=== PATIENT | male | born 2000 | race Caucasian/White ===

== ENCOUNTER 2019-10-04 20:20 | Emergency (ER) | payer OTHER ==
[2019-10-04 21:04] LABS: BILIRUBIN,URINE NEGATIVE (NEGATIVE); CLARITY,URINE CLEAR; COLOR,URINE YELLOW; GLUCOSE, URINE (UA) NEGATIVE (NEGATIVE); KETONES,URINE NEGATIVE (NEGATIVE); LEUKOCYTE ESTERASE ,URINE NEGATIVE (NEGATIVE); NITRITE,URINE NEGATIVE (NEGATIVE); PROTEIN,URINE NEGATIVE (NEGATIVE)
[2019-10-04] MEDS ORDERED: TETANUS,DIPTH,PERTUSS P/F (BOOSTRIX) 0.5 ML VIAL IM ONE (21:15)
--- NOTE | 2019-10-04 21:17 | ED Fall/Injury ---
General Chief Complaint: Trauma-Non Activation Stated Complaint: FELL OFF ROOF GROIN PAIN Nursing Triage Note: Superficial abrasions noted to L medial leg et thigh. Source: patient Exam Limitations: no limitations History of Present Illness Date Seen by Provider: Oct 04, 2019 Time Seen by Provider: 20:35 Initial Comments This 19-year-old young man presents to the emergency room with injuries to the left lower extremity and groin after falling off a 15 foot roof last night. He was intoxicated during the incident. He landed on a wooden privacy fence causing injury to the leg. He is ambulatory. He has no obvious injury to the penis or scrotum. He presents to the emergency room tonight at the urging of his parents. He does not know when his last tetanus shot was administered. He has abrasions and bruising to the anterior and medial portions of the lower leg and thigh extending up to the groin. Location Injury Occurred: "House libertarian" Allergies and Home Medications Allergies Coded Allergies: No Known Drug Allergies (Unverified , 10/04/19) Patient Home Medication List Home Medication List Reviewed: Yes Review of Systems Review of Systems Constitutional: no symptoms reported Eyes: No Symptoms Reported Ears, Nose, Mouth, Throat: no symptoms reported Respiratory: no symptoms reported Cardiovascular: no symptoms reported Gastrointestinal: no symptoms reported Genitourinary: no symptoms reported Musculoskeletal: see HPI Skin: see HPI Psychiatric/Neurological: No Symptoms Reported Past Xejcecz-Ipkbnn-Ucxkuf Hx Past Med/Social Hx: Reviewed Nursing Past Med/Soc Hx Patient Social History Alcohol Use: Rarely Uses Number of Drinks Today: 0 Alcohol Beverage of Choice: Beer Recreational Drug Use: No Smoking Status: Never a Smoker 2nd Hand Smoke Exposure: No Recent Foreign Travel: No Contact w/Someone Who Travel: No Recent Infectious Disease Expo: No Recent Hopitalizations: No Seasonal Allergies Seasonal Allergies: No Past Medical History Surgeries: Yes Orthopedic Respiratory: No Cardiac: No Neurological: No Genitourinary: No Gastrointestinal: No Musculoskeletal: No Endocrine: No HEENT: No Cancer: No Psychosocial: No Integumentary: No Physical Exam Vital Signs Vital Signs - First Documented 10/04/19 20:25 Temp 36.8 Pulse 94 Resp 18 B/P (MAP) 155/96 (115) Pulse Ox 98 O2 Delivery Room Air O2 Flow Rate 98.00 Capillary Refill : Less Than 3 Seconds Height, Weight, BMI Height: '" Weight: lbs. oz. kg; BMI Method: General Appearance: WD/WN, no apparent distress HEENT: normal ENT inspection Neck: normal inspection Cardiovascular: regular rate, rhythm, no edema, no murmur Respiratory: lungs clear, normal breath sounds, no respiratory distress Gastrointestinal: normal bowel sounds, non tender, soft Pelvic: other (male genital exam shows no erythema, abrasions, or ecchymosis to the penis or scrotum. No tenderness in the testicles.) Extremities: no pedal edema, other (soft tissue tenderness with associated abrasions and ecchymosis on the anterior and medial lower leg, knee, and thigh extending up to the groin. No pain with range of motion in the ankle, knee, or hip. The soft tissues are tender.) Neurologic/Psychiatric: supervisor electronic testing II-XII nml as tested, no motor/sensory deficits, alert, normal mood/affect, oriented x 3 Skin: normal color, warm/dry, ecchymosis, other (patient's) [place] Coma Score Best Eye Response: (4) Open Spontaneously Best Verbal Response: (5) Oriented Best Motor Response: (6) Obeys Commands [place] Total: 15 Progress/Results/Core Measures Results/Orders Lab Results Laboratory Tests Test 10/04/19 21:00 Range/Units Urine Color YELLOW Urine Clarity CLEAR Urine pH 6.0 5-9 Urine Specific [place] >=1.030 1.016-1.022 Urine Protein NEGATIVE NEGATIVE Urine Glucose (UA) NEGATIVE NEGATIVE Urine Ketones NEGATIVE NEGATIVE Urine Nitrite NEGATIVE NEGATIVE Urine Bilirubin NEGATIVE NEGATIVE Urine Urobilinogen 0.2 < = 1.0 MG/DL Urine Leukocyte Esterase NEGATIVE NEGATIVE Urine RBC (Auto) NEGATIVE NEGATIVE Urine RBC NONE /HPF Urine WBC 2-5 /HPF Urine Crystals PRESENT H /LPF Urine Amorphous Sediment MOD SHIV URATES H /LPF Urine Bacteria TRACE /HPF Urine Casts NONE /LPF Urine Mucus LARGE H /LPF Urine Culture Indicated NO My Orders Orders - ZACH ROSENBAUM MD Pelvis With Left Hip 2-3 Views (10/04/19 20:42) Ua Culture If Indicated (10/04/19 20:47) Dipht,Pertuss(Acell),Tet Adult (Boostrix (10/04/19 21:15) Medications Given in ED Current Medications Medications Dose Ordered Sig/Jackie Route Start Time Stop Time Status Last Admin Dose Admin Diphtheria/ Tetanus/Acell Pertussis 0.5 ml ONCE ONCE IM 10/04/19 21:15 10/04/19 21:16 DC 10/04/19 21:09 0.5 ML Vital Signs/I&O 10/04/19 10/04/19 20:25 22:02 Temp 36.8 36.8 Pulse 94 92 Resp 18 17 B/P (MAP) 155/96 (115) 142/80 (115) Pulse Ox 98 99 O2 Delivery Room Air Room Air O2 Flow Rate 98.00 98.00 Blood Pressure Mean: 115 Progress Progress Note : Progress Note Tetanus booster was administered. Pelvis x-ray revealed an incidental finding of possible enchondroma of the right femur. Patient was advised to follow-up with his primary care provider regarding this finding. Urinalysis was unremarkable. Diagnostic Imaging Diagonstic Imaging: Xray Plain Films/CT/US/NM/MRI: pelvis, hip Comments X-ray of the pelvis and hip viewed by me and report reviewed. See report below: NAME: ARPAN LUBIN [facility] REC#: [id number] PT STATUS: REG ER : 2000 PHYSICIAN: ZACH ROSENBAUM MD ADMIT DATE: 10/04/19/ER Draft Date of Exam:10/04/19 PELVIS WITH LEFT HIP 2-3 VIEWS INDICATION: Fell off a roof last night, complaining of pain in the left groin area. FINDINGS: An AP view of the pelvis and two views of the left hip demonstrates no fracture, dislocation or diastases. In the right femur just below the intertrochanteric line there is a chondroid lesion most likely an enchondroma. MRI could be helpful for further evaluation of this. IMPRESSION: 1. There is a chondroid lesion in the right femur most likely an enchondroma. Elective MRI could be helpful for further evaluation of this. 2. There are no acute findings. Dictated on workstation # [id number] Dict: 10/04/192052 Trans: 10/04/19 2119 [facility] [id number] Interpreted by: PATRICIA MONACO MD Departure Impression Primary Impression: Fall from roof as cause of accidental injury Additional Impressions: Contusion of left leg Qualified Codes: S80.12XA - Contusion of left lower leg, initial encounter Abrasion, left lower leg, initial encounter Abnormal x-ray of femur Disposition: HOME, SELF-CARE Condition: Improved Departure-Patient Inst. Decision time for Depature: 21:34 Referrals: NO,LOCAL PHYSICIAN (Family) Primary Care Physician Patient Instructions: Contusion (DC) Add. Discharge Instructions: The x-ray of your hip and pelvis showed no injuries related to your fall. However, there is an incidental abnormal finding to your right femur (thigh) bone. It was suggestive of a benign tumor called an enchondroma. Please follow-up with your primary care provider and discuss this further. Monitor your wounds for signs of infection such as increasing redness, increasing swelling, puslike drainage, or fever. Return to care promptly if you notice these symptoms. You may use Tylenol and/or ibuprofen for treatment of pain. Return to care if you have any further problems or concerns. All discharge instructions reviewed with patient and/or family. Voiced understanding. ZACH ROSENBAUM MD Oct 04, 2019 21:17
--- NOTE | 2019-10-04 21:20 | Diagnostic Imaging Report ---
INDICATION: Fell off a roof last night, complaining of pain in the left groin area. FINDINGS: An AP view of the pelvis and two views of the left hip demonstrates no fracture, dislocation or diastases. In the right femur just below the intertrochanteric line there is a chondroid lesion most likely an enchondroma. MRI could be helpful for further evaluation of this. IMPRESSION: 1. There is a chondroid lesion in the right femur most likely an enchondroma. Elective MRI could be helpful for further evaluation of this. 2. There are no acute findings. Dictated by: Dictated on workstation # [id number]
[2019-10-04 21:46] LABS: AMORPHOUS SEDIMENT,UR MOD AMOR URATES /LPF; BACTERIA,URINE TRACE /HPF
[2019-10-04 22:02] VITALS: BP 142/80
--- OUTSIDE RECORDS SUMMARY | 2019-10-07 10:35 | XMS REPORT | Continuity of Care Document ---
Author Organization Unknown Address Unknown Phone Unavailable Allergies Active Description Code Type Severity Reaction Onset Reported/Identified Relationship to Patient Clinical Status Yes No Known Drug Allergies [id number] Drug Allergy Unknown N/A 10/04/2019 Medications There is no data. Problems There is no data. Procedures There is no data. Results Test Result Range Complete urinalysis with reflex to cultu re - 10/04/19 21:00 Urine color determination YELLOW NRG Urine clarity determination CLEAR NR G Urine pH measurement by test strip 6.0 5-9 Specific gravity of urine by test strip >= 1.016-1.022 Urine protein assay by test strip, semi-quantitative NEGATIVE NEGATIVE Urine glucose detection by automated test strip NE GATIVE NEGATIVE Erythrocytes detection in urine sediment by light micr oscopy NEGATIVE NEGATIVE Urine ketones detection by automated test strip NE GATIVE NEGATIVE Urine nitrite detection by test strip NEGATIVE NEGATIVE Urine total bilirubin detection by test strip NEGA TIVE NEGATIVE Urine urobilinogen measurement by automated test strip (mass/volume) 0.2 mg/dL < = 1.0 Urine leukocyte esterase detection by dipstick NEG ATIVE NEGATIVE Automated urine sediment erythrocyte cou nt by microscopy (number/high power field) NONE NRG Automated urine sediment leukocyte count by microscopy (number/high power field) [HPF] NRG Bacteria detection in urine sediment by light microsco py TRACE NRG Crystals detection in urine sediment by light microsco py PRESENT NRG Casts detection in urine sediment by light microscopy NONE NRG Mucus detection in urine sediment by light microscopy LARGE NRG Complete urinalysis with reflex to culture NO NRG Amorphous sediment detection in urine sediment by ligh t microscopy MOD SHIV URATES NRG Encounters ACCT No. Visit Date/Time Discharge Status Pt. Type Provider Facility Loc./Unit Complaint [id number] 10/04/2019 20:22:00 020 22:02:00 DIS Emergency ROBI CHAVEZ, ZACH Sanab[facility] ER FELL OFF ROOF G ROIN PAIN
== END 2019-10-04 22:02 | disposition home or self-care (01) ==
LOC: ER 20:22
DX: S80.12XA Contusion of left lower leg, initial encounter (principal); R93.6 Abnormal findings on diagnostic imaging of limbs; R40.2142 Coma scale, eyes open, spontaneous, at arrival to emergency department; R40.2252 Coma scale, best verbal response, oriented, at arrival to emergency department; R40.2362 Coma scale, best motor response, obeys commands, at arrival to emergency department; Z23 Encounter for immunization; W13.2XXA Fall from, out of or through roof, initial encounter
CPT/HCPCS: 81000; 90715

== ENCOUNTER 2020-11-08 08:59 | Emergency (ER) | payer OTHER ==
[~2020-11-08] VITALS: Ht 185 cm; Wt 136.0 kg
[2020-11-08] MEDS ORDERED: ACETAMINOPHEN 500 MG TAB (TYLENOL) PO ONE (09:15)
[2020-11-08 09:27] LABS: CLARITY,URINE CLEAR; COLOR,URINE YELLOW; GLUCOSE, URINE (UA) NEGATIVE (NEGATIVE); KETONES,URINE NEGATIVE (NEGATIVE); LEUKOCYTE ESTERASE ,URINE NEGATIVE (NEGATIVE); NITRITE,URINE NEGATIVE (NEGATIVE); PH,URINE 5.5 (5-9); PROTEIN,URINE 1+ (NEGATIVE)
--- NOTE | 2020-11-08 09:54 | ED GU-Male ---
General Chief Complaint: - Urinary Stated Complaint: R TESTICLE PAIN Nursing Triage Note: PT STATES HE WOKE UP WITH PAIN IN RT TESTICLE THIS A.M. NO KNOWN CAUSE. Source: patient Exam Limitations: no limitations History of Present Illness Date Seen by Provider: Nov 08, 2020 Time Seen by Provider: 09:05 Initial Comments This 20-year-old young man presents to the emergency room with complaints of right testicular pain. He noticed a slight discomfort when he woke up this morning and the pain progressed after he went to a lecture class. He reports the pain is now 9 out of 10. He took 800 mg of ibuprofen before coming to the emergency room. He denies any dysuria, penile drainage, hematuria, or frequency. He reports a slight amount of discomfort in the right lower quadrant as well. There is no obvious swelling or inflammation of the testicle or scrotum. He has not experienced this problem before. Allergies and Home Medications Allergies Coded Allergies: No Known Drug Allergies (Unverified , 10/04/19) Home Medications Doxycycline Hyclate 100 Mg Tablet, 100 MG PO BID Prescribed by: ZACH GUEVARA on 11/08/20 1102 Hydrocodone/Acetaminophen 1 Each Tablet, 1 TAB PO Q4H PRN for PAIN-MODERATE (5- 7) Prescribed by: ZACH GUEVARA on 11/08/20 1103 Ondansetron 4 Mg Tab.rapdis, 4 MG SL Q4H PRN for NAUSEA/VOMITING Prescribed by: ZACH GUEVARA on 11/08/20 1102 Patient Home Medication List Home Medication List Reviewed: Yes Review of Systems Review of Systems Constitutional: no symptoms reported EENTM: no symptoms reported Respiratory: no symptoms reported Cardiovascular: no symptoms reported Gastrointestinal: see HPI Genitourinary: see HPI Musculoskeletal: no symptoms reported Skin: no symptoms reported Psychiatric/Neurological: No Symptoms Reported Endocrine: No Symptoms Reported Hematologic/Lymphatic: No Symptoms Reported Past Siohnrc-Ndcmdl-Jsqiqq Hx Past Med/Social Hx: Reviewed Nursing Past Med/Soc Hx Patient Social History Alcohol Use: Occasionally Uses Number of Drinks Today: AA Alcohol Beverage of Choice: Beer Smoking Status: Former Smoker Type Used: Electronic/Vapor 2nd Hand Smoke Exposure: No Recent Infectious Disease Expo: No Recent Hopitalizations: No Seasonal Allergies Seasonal Allergies: No Past Medical History Surgeries: Yes (RT FOOT, ELBOW, AND WRIST) Orthopedic Respiratory: No Cardiac: No Neurological: No Genitourinary: No Gastrointestinal: No Musculoskeletal: No Endocrine: No HEENT: No Cancer: No Psychosocial: No Integumentary: No Physical Exam Vital Signs Vital Signs - First Documented 11/08/20 09:05 Temp 36.7 Pulse 66 Resp 18 B/P (MAP) 146/92 (110) Pulse Ox 98 O2 Delivery Room Air Capillary Refill : Less Than 3 Seconds Height, Weight, BMI Height: '" Weight: lbs. oz. kg; 39.00 BMI Method: General Appearance: WD/WN, no apparent distress HEENT: PERRL/EOMI, normal ENT inspection Neck: normal inspection Cardiovascular: regular rate, rhythm, no edema, no murmur Respiratory: lungs clear, normal breath sounds, no respiratory distress Gastrointestinal: normal bowel sounds, soft; No distended; tenderness (Right lower quadrant) Extremities: normal inspection, no pedal edema Neurologic/Psychiatric: cpa tax II-XII nml as tested, no motor/sensory deficits, alert, normal mood/affect, oriented x 3 Skin: normal color, warm/dry Progress/Results/Core Measures Suspected Sepsis Recent Fever Within 48 Hours: No Infection Criteria Present: None New/Unexplained Altered Menta: No Sepsis Screen: No Definite Risk SIRS Temperature: Pulse: 66 Respiratory Rate: 18 Blood Pressure 146 /92 Mean: 110 Results/Orders Lab Results Laboratory Tests Test 11/08/20 09:20 Range/Units Urine Color YELLOW Urine Clarity CLEAR Urine pH 5.5 5-9 Urine Specific [place] >=1.030 1.016-1.022 Urine Protein 1+ H NEGATIVE Urine Glucose (UA) NEGATIVE NEGATIVE Urine Ketones NEGATIVE NEGATIVE Urine Nitrite NEGATIVE NEGATIVE Urine Bilirubin 1+ H NEGATIVE Urine Urobilinogen 1.0 < = 1.0 MG/DL Urine Leukocyte Esterase NEGATIVE NEGATIVE Urine RBC (Auto) 3+ H NEGATIVE Urine RBC >100 H /HPF Urine WBC 0-2 /HPF Urine Squamous Epithelial Cells 0-2 /HPF Urine Crystals PRESENT H /LPF Urine Amorphous Sediment FEW SHIV URATES H /LPF Urine Bacteria TRACE /HPF Urine Casts NONE /LPF Urine Mucus MODERATE H /LPF Urine Culture Indicated NO My Orders Orders - ZACH ROSENBAUM MD Ua Culture If Indicated (11/08/20 09:04) Acetaminophen Tablet (Tylenol Tablet) (11/08/20 09:15) Us Scrotum (Testicle) [id number] (11/08/20 09:13) Abdomen/Kub 1view (11/08/20 10:22) Ceftriaxone For Im Use (Rocephin For Im (11/08/20 11:00) Lidocaine 1% Inj 20 Ml (Xylocaine 1% Inj (11/08/20 11:00) Chlamydia Trachomatis Urine (11/08/20 10:51) Neis Nick Dna Urine Test (11/08/20 10:51) Urine Culture (11/08/20 10:51) Medications Given in ED Current Medications Medications Dose Ordered Sig/Jackie Route Start Time Stop Time Status Last Admin Dose Admin Acetaminophen 1,000 mg ONCE ONCE PO 11/08/20 09:15 11/08/20 09:16 DC 11/08/20 09:23 1,000 MG Ceftriaxone Sodium 1,000 mg ONCE ONCE IM 11/08/20 11:00 11/08/20 11:01 DC 11/08/20 11:00 1,000 MG Lidocaine HCl 2.1 ml ONCE ONCE INJ 11/08/20 11:00 11/08/20 11:01 DC 11/08/20 11:00 2.1 ML Vital Signs/I&O 11/08/20 11/08/20 11/08/20 09:05 09:23 11:19 Temp 36.7 36.7 36.7 Pulse 66 68 Resp 18 18 B/P (MAP) 146/92 (110) 129/77 (110) Pulse Ox 98 98 O2 Delivery Room Air Room Air Capillary Refill : Less Than 3 Seconds Blood Pressure Mean: 110 Progress Note : Time: 10:29 Progress Note Ultrasound did not show any major abnormalities. There was some question of mild epididymitis. However, urinalysis did show large amount of RBCs. Patient now complains that his pain is more in the abdomen. We have discussed options for further work-up for possible ureteral stone. Patient wishes to forego CT scan at this time because of radiation risk. We will obtain a KUB as an alternative at this time. Pain is a little improved. See discharge instructions for further discussion. Departure Impression Primary Impression: Right lower quadrant pain Additional Impressions: Right epididymitis Hematuria Qualified Codes: R31.9 - Hematuria, unspecified Disposition: HOME, SELF-CARE Condition: Improved Departure-Patient Inst. Decision time for Depature: 10:50 Referrals: NO,LOCAL PHYSICIAN (PCP/Family) Primary Care Physician Patient Instructions: Blood in the Urine (Hematuria) in Adults, Epididymitis, Kidney Stones in Adults Add. Discharge Instructions: Follow-up at the [facility] or with your primary care provider in 1 to 2 weeks. Please call today to make an appointment. You exhibited some blood in your urine. Blood in your urine could be from a variety of causes. Some of those causes include kidney stone, infection such as epididymitis, or cancers. It is very important that you follow-up and have a repeat urine specimen evaluated at [facility] or your primary care office to ensure the blood in your urine clears. You will also need to follow-up on the urine culture results at your a ppointment. Abstain from sexual intercourse until you review the results of these cultures. Drink plenty of clear liquids to stay well-hydrated and flush out your urinary tract. Strain your urine with the strainer to evaluate for possible kidney stones. Keep any stones collected and bring them to your follow-up appointment. Complete your antibiotic as prescribed. For nausea take Zofran (ondansetron) as prescribed. For pain take ibuprofen up to 600 mg every 6 hours as needed. For pain not controlled by ibuprofen, add hydrocodone as prescribed. Please return to the ER if you have worsening symptoms. Call with questions or concerns. All discharge instructions reviewed with patient and/or family. Voiced understanding. Scripts Hydrocodone/Acetaminophen (Hydrocodone-Acetamin 5-325 mg) 1 Each Tablet 1 TAB PO Q4H PRN for PAIN-MODERATE (5-7), #10 TAB Prov: ZACH ROSENBAUM MD 11/08/20 Ondansetron (Ondansetron Odt) 4 Mg Tab.rapdis 4 MG SL Q4H PRN for NAUSEA/VOMITING, #10 TAB Prov: ZACH ROSENBAUM MD 11/08/20 Doxycycline Hyclate (Doxycycline Hyclate) 100 Mg Tablet 100 MG PO BID, #20 TAB 0 Refills Prov: ZACH ROSENBAUM MD 11/08/20 Copy Copies To 1: DIAMOND IRBY MD, JOSHUA T MD Nov 08, 2020 09:54
[2020-11-08 10:04] LABS: BACTERIA,URINE TRACE /HPF; BILIRUBIN,URINE 1+ (NEGATIVE); RBC,URINE >100 /HPF; WBC,URINE 0-2 /HPF
[2020-11-08 10:05] LABS: AMORPHOUS SEDIMENT,UR FEW AMOR URATES /LPF; SQUAMOUS EPITHELIAL CELL,UR 0-2 /HPF
--- NOTE | 2020-11-08 10:26 | Diagnostic Imaging Report ---
PROCEDURE: US Scrotum. TECHNIQUE: Multiple real-time grayscale images were obtained over the scrotum in various projections bilaterally. INDICATION: Right testicle pain. COMPARISON: None FINDINGS: The right testicle measures 4.7 x 2.4 x 2.8 cm. Echogenicity and vascularity appears normal. No masses are seen. There is no hydrocele. The epididymis head is hypervascular. The left testicle measures 5.0 x 2.2 x 2.7 cm. Echogenicity and vascularity appear normal. No masses are seen. There is no hydrocele. The epididymis is unremarkable. IMPRESSION: 1. Increased blood flow in the right epididymis head, concerning for epididymitis. 2. No evidence of torsion. Dictated by: Dictated on workstation # [id number]
--- NOTE | 2020-11-08 10:47 | Diagnostic Imaging Report ---
HISTORY: Abdominal pain. TECHNIQUE: Frontal views of the abdomen. COMPARISON: None. FINDINGS: The bowel loops are nondistended without obstruction. The overall stool burden appears low. No large collection of free air is seen. No acute osseous abnormality is seen. There is a partially visualized sclerotic lesion in the proximal right femur which was better seen on the pelvis radiographs from 10/04/2019. IMPRESSION: 1. No bowel obstruction or large collection of free air. 2. Partially seen sclerotic lesion in the proximal right femur, please refer to radiographs from September 2019. Dictated by: Dictated on workstation # [id number]
[2020-11-08] MEDS ORDERED: cefTRIAXone 1,000 MG/2.86 ml vial (IM ONLY) IM ONE (11:00)
[2020-11-08] MEDS ORDERED: LIDOCAINE 1% INJ 20 ML 20 ML VIAL INJ ONE (11:00)
[2020-11-08] MEDS ORDERED: ACHD5005 PO (11:02)
[2020-11-08] MEDS ORDERED: ONDA4TAB11 SL (11:02)
[2020-11-08] MEDS ORDERED: DOXY100T2 PO (11:02)
[2020-11-08 11:19] VITALS: BP 129/77
== END 2020-11-08 11:19 | disposition home or self-care (01) ==
LOC: EDUNIT# 08:59 → ER 09:02
DX: R10.31 Right lower quadrant pain (principal); N45.1 Epididymitis; R31.9 Hematuria, unspecified; Z87.891 Personal history of nicotine dependence
CPT/HCPCS: 36415; 74018; 76870; 81000; 87088; 87491; 87591; 96372